=== PATIENT | female | born 1980 | race Caucasian/White ===

== ENCOUNTER 2016-11-05 19:30 | Emergency (ER) | payer MEDICAID ==
[~2016-11-05] VITALS: Ht 167.6 cm; Wt 68.0 kg
[2016-11-05 19:59] VITALS: BP 153/91
== END 2016-11-05 22:48 | disposition home or self-care (01) ==
LOC: ER 19:34
DX: G56.02 Carpal tunnel syndrome, left upper limb (principal); R20.9 Unspecified disturbances of skin sensation

== ENCOUNTER 2017-03-09 20:49 | Emergency (ER) | payer MEDICAID ==
[~2017-03-09] VITALS: Ht 165.1 cm; Wt 68.0 kg
[2017-03-10 02:35] VITALS: BP 98/71
[2017-03-10] MEDS ORDERED: KETOROLAC TROMETH 60MG/2ML VIAL IM ONE (02:45)
== END 2017-03-10 03:42 | disposition home or self-care (01) ==
LOC: ER 20:58
DX: G56.03 Carpal tunnel syndrome, bilateral upper limbs (principal); Z88.5 Allergy status to narcotic agent; Z88.0 Allergy status to penicillin
CPT/HCPCS: 73100; 73120; 96372; 99284; J1885

== ENCOUNTER 2017-03-16 12:27 | Emergency (ER) | payer MEDICAID ==
[~2017-03-16] VITALS: Ht 165.1 cm; Wt 69.4 kg
[2017-03-16 12:42] VITALS: BP 156/90
[2017-03-16] MEDS ORDERED: KETOROLAC TROMETH 60MG/2ML VIAL IM ONE (13:45)
== END 2017-03-16 13:41 | disposition home or self-care (01) ==
LOC: EDBD 12:27 → ER 12:33
DX: M77.9 Enthesopathy, unspecified (principal); G89.29 Other chronic pain; M79.642 Pain in left hand; Z88.0 Allergy status to penicillin; Z88.6 Allergy status to analgesic agent
CPT/HCPCS: 96372; 99283; J1885